=== PATIENT | female | born 1980 | race Caucasian/White ===

== ENCOUNTER → 2021-03-13 | Outpatient (CLI) | payer OTHER | LOC: KOH-I 09:00 | DX: J32.9 Chronic sinusitis, unspecified (principal) | CPT/HCPCS: 70486 ==

== ENCOUNTER → 2021-06-08 | Outpatient (CLI) | payer OTHER | LOC: RT 13:53 | DX: F32.A Depression, unspecified (principal); F41.9 Anxiety disorder, unspecified | CPT/HCPCS: 93005 ==